=== PATIENT | female | born 1990 | race Caucasian/White ===

== ENCOUNTER 2016-07-09 19:09 | Emergency (ER) | payer SELFPAY ==
--- NOTE | 2016-07-09 19:24 | EDM.PDOC ---
ED HPI GENERAL MEDICAL PROBLEM - General Chief Complaint: Medication Administration Stated Complaint: PRESCRIPTION REFILL Time Seen by Provider: 07/09/16 19:15 Source of Information: Reports: Patient History Limitations: Reports: No limitations - History of Present Illness INITIAL COMMENTS - FREE TEXT/NARRATIVE: HISTORY AND PHYSICAL: History of present illness: [] 26 show female with a history of depression on Effexor daily just moved from out of town and is out of her medication. She is not established relationship with a primary care doctor yet and is concerned that she wants to continue to be compliant with medication. she denies worsening symptoms of depression and is just at her baseline of having well controlled with this medication. She has no inability to function, SI, HI, no overdose or self injury. No recent illness. Patient has no other complaints she is requesting her medication. Her depression is at its baseline of being well-controlled Review of systems: As per history of present illness and below otherwise all systems reviewed and negative. Past medical history: As per history of present illness and as reviewed below otherwise noncontributory. Surgical history: As per history of present illness and as reviewed below otherwise noncontributory. Social history: No reported history of drug or alcohol abuse. Family history: As per history of present illness and as reviewed below otherwise noncontributory. Physical exam: HEENT: Atraumatic, normocephalic, well-appearing, normal mood and affect Lungs: Clear to auscultation, breath sounds equal bilaterally, chest nontender. Heart: S1S2, regular, negative for clicks, rubs, or JVD. Abdomen: nondistended Pelvis: Deferred Genitourinary: Deferred. Rectal: Deferred. Extremities: Atraumatic, normal appearing Neuro: Awake, alert, oriented. Motor unremarkable throughout. Exam nonfocal. Diagnostics: [] Therapeutics: [] Impression: [] Plan: [] Definitive disposition and diagnosis as appropriate pending reevaluation and review of above. - Related Data Allergies Allergy/AdvReac Type Severity Reaction Status Date / Time No Known Allergies Allergy Verified 07/09/16 19:20 Home Meds: Home Meds Venlafaxine HCl [Venlafaxine HCl ER] 300 mg PO DAILY #60 tab.er.24 07/09/16 [Rx] ED ROS GENERAL - Review of Systems Review Of Systems: See Below (See history of present illness) ED EXAM, GENERAL - Physical Exam Exam: See Below (Per history of present illness) Course - Vital Signs Text/Narrative:: Patient prescribe her Effexor XR and [place]. No emergent psychiatric condition exists and patient has no medical complaints. sHe agrees with outpatient followup and strict return precautions regarding depression given Last Recorded V/S: Last Vital Signs Temp 36.2 C 07/09/16 19:14 Pulse 111 H 07/09/16 19:14 Resp 18 07/09/16 19:14 BP 139/75 07/09/16 19:14 Pulse Ox 96 07/09/16 19:14 Departure - Departure Time of Disposition: 19:24 Disposition: Home, Self-Care 01 Clinical Impression: Depression, Medication requested Prescriptions: Venlafaxine HCl [Venlafaxine HCl ER] 300 mg PO DAILY #60 tab.er.24 Instructions: Medicine Refill at the Emergency Department Referrals: PCP,None [Primary Care Provider] - Forms: ED Department Discharge Additional Instructions: Continue your medication as previously prescribed. Return immediately for signs of uncontrolled depression or inability to function and especially for any thoughts of hurting herself.Followup to establish a relationship with her primary care doctor in [facility].
[2016-07-09 19:59] VITALS: BP 136/73
== END 2016-07-09 19:57 | disposition home or self-care (01) ==
LOC: MW.ED 19:09
DX: Z76.0 Encounter for issue of repeat prescription (principal); F32.9 Major depressive disorder, single episode, unspecified; Z79.899 Other long term (current) drug therapy
CPT/HCPCS: 99281; 99283

== ENCOUNTER 2018-01-03 17:08 | Emergency (ER) | payer SELFPAY ==
[2018-01-03] MEDS ORDERED: Ketorolac 60 MG/2 ML SDV IM ONE (17:35)
--- NOTE | 2018-01-03 17:41 | EDM.PDOC ---
ED HPI GENERAL MEDICAL PROBLEM - General Chief Complaint: Upper Extremity Injury/Pain Stated Complaint: RT ARM HAS CARPILTUNNEL FLAIR UP Time Seen by Provider: 01/03/18 17:27 Source of Information: Reports: Patient History Limitations: Reports: No Limitations - History of Present Illness INITIAL COMMENTS - FREE TEXT/NARRATIVE: HISTORY AND PHYSICAL: []28-year-old female presenting with right hand and arm pain History of Present Illness: []Patient has history of carpal tunnel. She does not have any braces here with her Recently started working at [employer] as a [email or web address]. Review of Systems: As per history of present illness and below otherwise all systems reviewed and negative. Past medical history: As per history of present illness and as reviewed below otherwise noncontributory. Surgical history: As per history of present illness and as reviewed below otherwise noncontributory. Social history: No reported history of drug or alcohol abuse. Family history: As per history of present illness and as reviewed below otherwise noncontributory. Physical exam: HEENT: Atraumatic, normocehpalic, pupils reactive, negative for conjunctival pallor or scleral icterus, mucous membranes moist, throat clear, neck supple, nontender, trachea midline. Lungs: Clear to auscultation, breath sounds equal bilaterally, chest non tender. Heart: S1S2, regular, negative for clicks, rubs, or JVD. Abdomen: Soft, nondistended, nontender. Negative for masses or hepatossplenmegaly. Negative for costovertebral tenderness. Pelvis: Stable nontender. Genitourinary: Deferred. Rectal: Deferred Extremities: Atraumatic, negative for cords or calf pain. Neurovascular unremarkable. Neuro: Awake, alert, oriented. Cranial nerves II through XII unremarkable. Cerebellum unremarkable. Motor and sensory unremarkable throughout. Exam nonfocal. Diagnostics: [] Therapeutics: []wrist brace Impression: []Carpal tunnel Plan: []Use the brace while at work and at bedtime Follow-up with Dr. Laura Thomas Return to the emergency department instructed Definitive disposition and diagnosis as appropriate pending reevaluation and review of above. Onset: Gradual Duration: Chronic, Getting Worse Location: Reports: Upper Extremity, Right right hand Pain Score (Numeric/FACES): 8 - Related Data Allergies Allergy/AdvReac Type Severity Reaction Status Date / Time No Known Allergies Allergy Verified 01/03/18 17:24 Home Meds: Home Meds Diclofenac Sodium [Voltaren] 75 mg PO BIDMEALS #12 tab.cr 01/03/18 [Rx] Past Medical History HEENT History: Reports: None Musculoskeletal History: Reports: Other (See Below) Other Musculoskeletal History: Carpal tunnel Psychiatric History: Reports: Anxiety, Depression - Infectious Disease History Infectious Disease History: Reports: Chicken Pox - Past Surgical History HEENT Surgical History: Reports: Oral Surgery, Tonsillectomy Musculoskeletal Surgical History: Reports: None Social & Family History - Family History Family Medical History: Noncontributory - Tobacco Use Smoking Status *Q: Current Every Day Smoker Years of Tobacco use: 10 Packs/Tins Daily: 0.4 - Caffeine Use Caffeine Use: Reports: Coffee - Recreational Drug Use Recreational Drug Use: No Review of Systems - Review of Systems Review Of Systems: ROS reveals no pertinent complaints other than HPI. ED EXAM, GENERAL - Physical Exam Exam: See Below (see dictation) Course - Vital Signs Last Recorded V/S: Last Vital Signs Temp 36.4 C 01/03/18 17:21 Pulse 82 01/03/18 17:21 Resp 17 01/03/18 17:21 BP 124/73 01/03/18 17:21 Pulse Ox 99 01/03/18 17:21 - Orders/Labs/Meds Orders: Active Orders 24 hr Category Date Time Status Splinting [RC] ASDIRECTED Care 01/03/18 17:34 Active Ketorolac [Toradol] Med 01/03/18 17:35 Once 60 mg IM ONETIME ONE Departure - Departure Time of Disposition: 17:39 Disposition: Home, Self-Care 01 Condition: Good Clinical Impression: Carpal tunnel syndrome of right wrist - Discharge Information *PRESCRIPTION DRUG MONITORING PROGRAM REVIEWED*: Not Applicable *COPY OF PRESCRIPTION DRUG MONITORING REPORT IN PATIENT MAMIE: Not Applicable Prescriptions: Diclofenac Sodium [Voltaren] 75 mg PO BIDMEALS #12 tab.cr Instructions: Carpal Tunnel Syndrome, [id number], Hand Exercises Referrals: PCP,None [Primary Care Provider] - Additional Instructions: The following information is given to patients seen in the emergency department who are being discharged to home. This information is to outline your options for follow-up care. We provide all patients seen in our emergency department with a follow-up referral. The need for follow-up, as well as the timing and circumstances, are variable depending upon the specifics of your emergency department visit. If you don't have a primary care physician on staff, we will provide you with a referral. We always advise you to contact your personal physician following an emergency department visit to inform them of the circumstance of the visit and for follow-up with them and/or the need for any referrals to a consulting specialist. The emergency department will also refer you to a specialist when appropriate. This referral assures that you have the opportunity for followup care with a specialist. All of these measure are taken in an effort to provide you with optimal care, which includes your followup. Under all circumstances we always encourage you to contact your private physician who remains a resource for coordinating your care. When calling for followup care, please make the office aware that this follow-up is from your recent emergency room visit. If for any reason you are refused follow-up, please contact the [facility] emergency department at and asked to speak to the emergency department charge nurse. Use the brace while at work and at bedtime Follow-up with Dr. Laura Thomas Return to the emergency department instructed - My Orders Last 24 Hours: My Active Orders 01/03/18 17:34 Splinting [RC] ASDIRECTED 01/03/18 17:35 Ketorolac [Toradol] 60 mg IM ONETIME ONE - Assessment/Plan Last 24 Hours: My Active Orders 01/03/18 17:34 Splinting [RC] ASDIRECTED 01/03/18 17:35 Ketorolac [Toradol] 60 mg IM ONETIME ONE
[2018-01-03 18:06] VITALS: BP 124/77
== END 2018-01-03 18:02 | disposition home or self-care (01) ==
LOC: MW.ED 17:08
DX: G56.01 Carpal tunnel syndrome, right upper limb (principal); F17.210 Nicotine dependence, cigarettes, uncomplicated
CPT/HCPCS: 96372; 99283; J1885

== ENCOUNTER 2018-01-19 11:56 | Emergency (ER) | payer MEDICAID ==
--- NOTE | 2018-01-19 12:08 | EDM.PDOC ---
ED HPI GENERAL MEDICAL PROBLEM - General Chief Complaint: Neuro Symptoms/Deficits Stated Complaint: NUMB LEFT SIDE Time Seen by Provider: 01/19/18 12:08 Source of Information: Reports: Patient - History of Present Illness INITIAL COMMENTS - FREE TEXT/NARRATIVE: HISTORY AND PHYSICAL: History of present illness: [Patient presents with facial weakness on the left, forehead is involved left eye weakness with closing as well as drooping of the angle of the mouth, she has had sinus symptoms over the last 2 weeks as well as tongue numbness developing 2 weeks prior to days ago the facial weakness became pronounced. She is now very worried about stroke, she has been doing some reading she now states that her left arm as somewhat heavier feeling than the right however. Strength is noted she does have a history of carpal tunnel syndrome and has some decreased sensation in the median nerve distribution but not loss of sensation, this has been ongoing for quite some time Stroke score is 2 mostly based on the decreased sensation compared to the right All other symptoms such as fever nausea vomiting diarrhea constipation chest pain shortness breath headache dizziness palpitation no bowel or urine symptoms ] Review of systems: As per history of present illness and below otherwise all systems reviewed and negative. Past medical history: As per history of present illness and as reviewed below otherwise noncontributory. Surgical history: As per history of present illness and as reviewed below otherwise noncontributory. Social history: No reported history of drug or alcohol abuse. Family history: As per history of present illness and as reviewed below otherwise noncontributory. Physical exam: HEENT: Atraumatic, normocephalic, pupils reactive, negative for conjunctival pallor or scleral icterus, mucous membranes moist, throat clear, neck supple, nontender, trachea midline. Tenderness right greater than left Lungs: Clear to auscultation, breath sounds equal bilaterally, chest nontender. Patient is able to close her left eye but week on opening compared to the right Heart: S1S2, regular, negative for clicks, rubs, or JVD. Abdomen: Soft, nondistended, nontender. Negative for masses or hepatosplenomegaly. Negative for costovertebral tenderness. Pelvis: Stable nontender. Genitourinary: Deferred. Rectal: Deferred. Extremities: Atraumatic, negative for cords or calf pain. Neurovascular unremarkable. Neuro: Awake, alert, oriented. Cranial nerves II through XII unremarkable in the right. Cerebellum unremarkable. Motor and sensory unremarkable throughout. Exam nonfocal. Cranial nerve VII lesion on the left is noted Diagnostics: [Lab as below Head CT Chest 1 view EKG ] Therapeutics: [ antral dose pack Z-Brennan ] Impression: [ Irvona palsy ] Carpal tunnel syndrome Definitive disposition and diagnosis as appropriate pending reevaluation and review of above. - Related Data Allergies Allergy/AdvReac Type Severity Reaction Status Date / Time No Known Allergies Allergy Verified 01/19/18 13:06 Home Meds: Home Meds Kratom 10 - 15 gram PO DAILY 01/19/18 [History] Past Medical History HEENT History: Reports: None Musculoskeletal History: Reports: Other (See Below) Other Musculoskeletal History: Carpal tunnel Psychiatric History: Reports: Anxiety, Depression - Infectious Disease History Infectious Disease History: Reports: Chicken Pox - Past Surgical History HEENT Surgical History: Reports: Oral Surgery, Tonsillectomy Musculoskeletal Surgical History: Reports: None Social & Family History - Family History Family Medical History: Noncontributory - Caffeine Use Caffeine Use: Reports: Coffee ED ROS GENERAL - Review of Systems Review Of Systems: See Below ED EXAM, GENERAL - Physical Exam Exam: See Below Course - Vital Signs Last Recorded V/S: Last Vital Signs Temp 97.4 F 01/19/18 13:10 Pulse 85 01/19/18 13:10 Resp 16 01/19/18 13:10 BP 115/73 01/19/18 13:10 Pulse Ox 96 01/19/18 13:10 - Orders/Labs/Meds Orders: Active Orders 24 hr Category Date Time Status EKG Documentation Completion [RC] STAT Care 01/19/18 12:03 Active Chest 1V Frontal [CR] Stat Exams 01/19/18 12:03 Taken Head wo Cont [CT] Stat Exams 01/19/18 12:03 Taken HCG QUALITATIVE,URINE [URCHEM] Stat Lab 01/19/18 12:04 Ordered UA W/MICROSCOPIC [URIN] Stat Lab 01/19/18 12:03 Ordered Labs: Laboratory Tests 01/19/18 01/19/18 01/19/18 Range/Units 12:40 12:40 12:58 WBC 12.43 H (4.0-11.0) K/uL RBC 4.82 (4.30-5.90) M/uL Hgb 13.8 (12.0-16.0) g/dL Hct 42.2 (36.0-46.0) % MCV 87.6 (80.0-98.0) fL MCH 28.6 (27.0-32.0) pg MCHC 32.7 (31.0-37.0) g/dL RDW Std Deviation 42.9 (28.0-62.0) fl RDW Coeff of Lamont 13 (11.0-15.0) % Plt Count 375 (150-400) K/uL MPV 10.50 (7.40-12.00) fL Neut % (Auto) 57.0 (48.0-80.0) % Lymph % (Auto) 36.4 (16.0-40.0) % Crowley % (Auto) 5.1 (0.0-15.0) % Eos % (Auto) 1.0 (0.0-7.0) % Baso % (Auto) 0.5 (0.0-1.5) % Neut # (Auto) 7.1 H (1.4-5.7) K/uL Lymph # (Auto) 4.5 H (0.6-2.4) K/uL Crowley # (Auto) 0.6 (0.0-0.8) K/uL Eos # (Auto) 0.1 (0.0-0.7) K/uL Baso # (Auto) 0.1 (0.0-0.1) K/uL Nucleated RBC % 0.0 /100WBC Nucleated RBCs # 0 K/uL INR 0.99 Sodium 139 (136-145) mmol/L Potassium 5.1 (3.5-5.1) mmol/L Chloride 104 (98-107) mmol/L Carbon Dioxide 26.2 (21.0-32.0) mmol/L BUN 15 (7.0-18.0) mg/dL Creatinine 0.7 (0.6-1.0) mg/dL Est Cr Clr Drug Dosing 94.63 mL/min Estimated GFR (MDRD) > 60.0 ml/min Glucose 79 (74-106) mg/dL Calcium 8.4 L (8.5-10.1) mg/dL Total Bilirubin 0.5 (0.2-1.0) mg/dL AST 35 (15-37) IU/L ALT 25 (14-63) IU/L Alkaline Phosphatase 91 (46-116) U/L Troponin I < 0.050 (0.000-0.056) ng/mL Total Protein 7.2 (6.4-8.2) g/dL Albumin 3.9 (3.4-5.0) g/dL Globulin 3.3 (2.0-3.5) g/dL Albumin/Globulin Ratio 1.2 L (1.3-2.8) TSH 3rd Generation 1.74 (0.36-3.74) uIU/mL Departure - Departure Time of Disposition: 14:31 Disposition: Home, Self-Care 01 Condition: Good Clinical Impression: Bennett's palsy, Carpal tunnel syndrome, Sinusitis - Discharge Information Forms: ED Department Discharge Additional Instructions: Medication as prescribed Return if symptoms persist or worsen Follow-up with primary care in 2 weeks sooner as needed [facility] - Primary Care [address] [place] [address] The following information is given to patients seen in the emergency department who are being discharged to home. This information is to outline your options for follow-up care. We provide all patients seen in our emergency department with a follow-up referral. The need for follow-up, as well as the timing and circumstances, are variable depending upon the specifics of your emergency department visit. If you don't have a primary care physician on staff, we will provide you with a referral. We always advise you to contact your personal physician following an emergency department visit to inform them of the circumstance of the visit and for follow-up with them and/or the need for any referrals to a consulting specialist. The emergency department will also refer you to a specialist when appropriate. This referral assures that you have the opportunity for follow-up care with a specialist. All of these measure are taken in an effort to provide you with optimal care, which includes your follow-up. Under all circumstances we always encourage you to contact your private physician who remains a resource for coordinating your care. When calling for follow-up care, please make the office aware that this follow-up is from your recent emergency room visit. If for any reason you are refused follow-up, please contact the [facility] emergency department at and asked to speak to the emergency department charge nurse. - My Orders Last 24 Hours: My Active Orders 01/19/18 12:03 EKG Documentation Completion [RC] STAT Chest 1V Frontal [CR] Stat Head wo Cont [CT] Stat UA W/MICROSCOPIC [URIN] Stat 01/19/18 12:04 HCG QUALITATIVE,URINE [URCHEM] Stat - Assessment/Plan Last 24 Hours: My Active Orders 01/19/18 12:03 EKG Documentation Completion [RC] STAT Chest 1V Frontal [CR] Stat Head wo Cont [CT] Stat UA W/MICROSCOPIC [URIN] Stat 01/19/18 12:04 HCG QUALITATIVE,URINE [URCHEM] Stat
[2018-01-19 13:41] LABS: CHLORIDE,CL 104 mmol/L (98-107); SODIUM,NA 139 mmol/L (136-145)
[2018-01-19 14:48] VITALS: BP 111/72
--- NOTE | 2018-01-22 10:00 | CR ---
EXAM DATE: 01/19/18 PATIENT'S AGE: 28 Patient: SURENDRA GOMEZ Facility: [place], [place] Site . Site : 1990 Study: XRay Chest [id number] 12:14:55 PM Ordering Physician: Doctor Ortez Final Report: INDICATION: Weakness left TECHNIQUE: Chest radiograph 1 view COMPARISON: None FINDINGS: Mediastinum: The mediastinum is normal in appearance. The heart silhouette is normal in size and morphology. Lung: Both lungs are unremarkable in appearance. There is a 5 mm density overlying the right apex. No sign of pleural effusion seen. No pneumothorax is identified. Musculoskeletal: Unremarkable for age. IMPRESSION: 1. There is a 5 mm density overlying the right apex. Comparison with any prior outside imaging is recommended. If these cannot be obtained, follow up chest radiograph is warranted to document stability and exclude a foreign body. Dictated by Enoch Frey MD @ 01/19/2018 1:02:12 PM Dictated by: Enoch Frey MD @ 01/19/2018 13:03:20 (Electronic Signature) Report Signed by Proxy. ISADORA
--- NOTE | 2018-01-22 10:00 | CT ---
EXAM DATE: 01/19/18 PATIENT'S AGE: 28 Patient: SURENDRA GOMEZ Facility: [place], [place] Site . Site : 1990 Study: CT Head STROKE PROTOCOL [id number]/[id number] 12:10:55 PM Ordering Physician: Doctor Ortez Final Report: INDICATION: Left-sided weakness COMPARISON: none TECHNIQUE: A CT volumetric acquisition was performed of the brain without IV contrast. FINDINGS: There is no evidence of a subdural or epidural hematoma. There is no evidence of subarachnoid hemorrhage or intraparenchymal bleeding. The CT images reveal a normal appearance of the cerebral ventricles and basal cisterns. There is no evidence of localized tissue infarction or mass effect. There is normal grider white matter differentiation. The mastoid air cells and middle ear cavities are clear. The calvarium appears intact. There is inflammatory mucoperiosteal thickening within the visualized ethmoid and sphenoid sinuses. The frontal air cells appear clear. IMPRESSION: No evidence of intracranial hemorrhage, infarct or mass effect. Paranasal sinusitis. Please note that all CT scans at this facility use dose modulation, iterative reconstruction, and/or weight-based dosing when appropriate to reduce radiation dose to as low as reasonably achievable. Dictated by Last Bianchi MD @ Jan 19 2018 12:13PM (Electronic Signature) Report Signed by Proxy. ISADORA
== END 2018-01-19 14:47 | disposition home or self-care (01) ==
LOC: MW.ED 11:56
DX: G51.0 Bell's palsy (principal); G56.02 Carpal tunnel syndrome, left upper limb; J32.9 Chronic sinusitis, unspecified
CPT/HCPCS: 36415; 70450; 70450-26; 71045; 71045-26; 80053; 84443; 84484; 85025; 85610; 93005; 99285-25

== ENCOUNTER 2019-05-25 19:10 | Emergency (ER) | payer MEDICAID ==
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
[2019-05-25] MEDS ORDERED: Acetaminophen/HYDROcodone 325-10 MG Tab PO ONE (20:23)
[2019-05-25] MEDS ORDERED: Ketorolac 60 MG/2 ML SDV IM ONE (20:29)
[2019-05-25] MEDS ORDERED: Ketorolac 60 MG/2 ML SDV ONE (20:30)
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
[2019-05-25 21:05] VITALS: BP 100/66; PULSE 74
== END 2019-05-25 21:37 | disposition home or self-care (01) ==
LOC: MW.ED 19:10
DX: S00.12XA Contusion of left eyelid and periocular area, initial encounter (principal); S00.33XA Contusion of nose, initial encounter; S30.0XXA Contusion of lower back and pelvis, initial encounter; S30.811A Abrasion of abdominal wall, initial encounter; S40.212A Abrasion of left shoulder, initial encounter; S40.812A Abrasion of left upper arm, initial encounter; F17.210 Nicotine dependence, cigarettes, uncomplicated; Y04.2XXA Assault by strike against or bumped into by another person, initial encounter
CPT/HCPCS: 70450; 70486; 81025; 96372; 99284; J1885

== ENCOUNTER 2019-07-24 21:59 | Emergency (ER) | payer MEDICAID, OTHER ==
[2019-07-24] MEDS ORDERED: Levofloxacin/Dextrose 5%-Water 500 MG in Premix Bag 1 BAG IV ONE (22:34)
[2019-07-24] MEDS ORDERED: Levofloxacin/Dextrose 5%-Water 100 ML IV ONE (22:53)
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
[2019-07-24] MEDS ORDERED: Doxycycline 200 MG in Dextrose 5% in Water 250 ML IV STA ×2 (23:28)
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
[2019-07-24 23:41] LABS: BLOOD UREA NITROGEN,BUN 8 mg/dL (7.0-18.0); CARBON DIOXIDE,CO2 26.6 mmol/L (21.0-32.0); CHLORIDE,CL 101 mmol/L (98-107); GLUCOSE RANDOM 86 mg/dL (74-106); POTASSIUM,K 3.9 mmol/L (3.5-5.1); SODIUM,NA 138 mmol/L (136-145)
[2019-07-24 23:54] VITALS: PULSE 116
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
[2019-07-25 00:57] VITALS: BP 119/69
== END 2019-07-25 00:45 | disposition left against medical advice (07) ==
LOC: MW.ED 21:59
DX: L02.11 Cutaneous abscess of neck (principal); L03.221 Cellulitis of neck; F17.210 Nicotine dependence, cigarettes, uncomplicated
CPT/HCPCS: 36415; 71045; 76536; 80053; 83605; 84484; 85025; 85610; 87040; 96365; 96367; 99284; J1956; J3370; J7050; 99285

== ENCOUNTER 2019-07-27 17:31 | Emergency (ER) | payer OTHER ==
[2019-07-27 17:59] VITALS: BP 108/41; PULSE 80
--- NOTE | 2019-07-27 18:30 | EDM.PDOC ---
ED HPI GENERAL MEDICAL PROBLEM - General Chief Complaint: Skin Complaint Stated Complaint: NEEDS ASSISTANCE REPACKING WOUND Time Seen by Provider: 07/27/19 18:11 Source of Information: Reports: Patient History Limitations: Reports: No Limitations - History of Present Illness INITIAL COMMENTS - FREE TEXT/NARRATIVE: HISTORY AND PHYSICAL: History of present illness: Patient is a 29-year-old female who presents to the ED today with concern of getting help with changing a wound dressing. Patient states that 24 hours ago she had an abscess on the right side of her neck incision and drained in the operating room by a surgeon in [place]. Patient states that she was instructed to change the packing every 24 hours and was provided with packing material (1/2 in iodoform) that she has with her. Patient states that she feels too queasy and feels like she cannot change this dressing herself so came to the ED to have this changed for her. Patient denies any other symptoms or concerns. Patient denies fever, chills, chest pain, shortness of breath, or cough. Denies headache, neck stiff ness, change in vision, syncope, or near syncope. Denies nausea, vomiting, abdominal pain, diarrhea, constipation, or dysuria. Has not noted any blood in urine or stool. Patient has been eating and drinking appropriately. Review of systems: As per history of present illness and below otherwise all systems reviewed and negative. Past medical history: As per history of present illness and as reviewed below otherwise noncontributory. Surgical history: As per history of present illness and as reviewed below otherwise noncontributory. Social history: See social history for further information Family history: As per history of present illness and as reviewed below otherwise noncontributory. Physical exam: General: Patient is alert, oriented, and in no acute distress. Patient sitting comfortably on exam table. HEENT: There is a 4cm surgical open laceration of the right side of the neck with packing with iodoform without drainage and appears to be healing appropriately. Otherwise, Atraumatic, normocephalic, pupils equal and reactive bilaterally, negative for conjunctival pallor or scleral icterus, mucous membranes moist, TMs normal bilaterally, throat clear, neck supple, nontender, trachea midline. No drooling or trismus noted. No meningeal signs. No hot potato voice noted. Lungs: Clear to auscultation, breath sounds equal bilaterally, chest nontender. Heart: S1S2, regular rate and rhythm without overt murmur Abdomen: Soft, nondistended, nontender. Negative for masses or hepatosplenomegaly. Negative for costovertebral tenderness. Pelvis: Stable nontender. Genitourinary: Deferred. Rectal: Deferred. Skin: Intact, warm, dry. No lesions or rashes noted. Extremities: Atraumatic, negative for cords or calf pain. Neurovascular unremarkable. Neuro: Awake, alert, oriented. Cranial nerves II through XII unremarkable. Cerebellum unremarkable. Motor and sensory unremarkable throughout. Exam nonfocal. Notes: 1/2 in iodoform was easily removed from 4cm incision of the right side of neck. Wound explored without signs of worsening infection and tissue appears to be healing well without drainage or warmth of the area. 1/2 in iodoform was used to repack the wound. Patient tolerated procedure well. Discussed importance for follow-up with her surgeon as well as her primary care provider. Voices understanding and is agreeable to plan of care. Denies any further questions or concerns at this time. Diagnostics: None Therapeutics: None Prescription: None Impression: Encounter for surgical wound dressing change Plan: 1. You can alternate ibuprofen and Tylenol as directed for pain and discomfort. 2. Continue wound dressing changes as directed by your surgeon who performed the surgery. 3. Follow-up with your primary care provider as discussed. Return to the ED as needed and as discussed. Definitive disposition and diagnosis as appropriate pending reevaluation and review of above. Right Neck Pain Score (Numeric/FACES): 7 - Related Data Allergies Allergy/AdvReac Type Severity Reaction Status Date / Time No Known Allergies Allergy Verified 07/27/19 17:59 Home Meds: Home Meds Venlafaxine [Effexor] 150 mg PO DAILY 07/27/19 [History] Past Medical History HEENT History: Reports: None Cardiovascular History: Reports: None Respiratory History: Reports: None Gastrointestinal History: Reports: None Genitourinary History: Reports: None MALTER OPERATOR History: Reports: None Musculoskeletal History: Reports: Other (See Below) Other Musculoskeletal History: Carpal tunnel Neurological History: Reports: None Psychiatric History: Reports: Anxiety, Depression Endocrine/Metabolic History: Reports: None Insulin Pump Model and Applications Project Manager: None Hematologic History: Reports: None Immunologic History: Reports: None Oncologic (Cancer) History: Reports: None Dermatologic History: Reports: None - Infectious Disease History Infectious Disease History: Reports: Chicken Pox, MRSA Other Infectious Disease History: Staph - Past Surgical History Head Surgeries/Procedures: Reports: None HEENT Surgical History: Reports: Oral Surgery, Tonsillectomy Musculoskeletal Surgical History: Reports: None Social & Family History - Family History Family Medical History: Noncontributory Cardiac: Reports: CAD Oncologic: Reports: Other (See Below) Other Oncologic Family History: CA - Tobacco Use Smoking Status *Q: Current Every Day Smoker Years of Tobacco use: 5 Packs/Tins Daily: 0.5 - Caffeine Use Caffeine Use: Reports: None - Recreational Drug Use Recreational Drug Use: No Recreational Drug Type: Reports: Marijuana/Hashish ED ROS GENERAL - Review of Systems Review Of Systems: Comprehensive ROS is negative, except as noted in HPI. ED EXAM, SKIN/RASH Exam: See Below (see dictation) Course - Vital Signs Last Recorded V/S: Last Vital Signs Temp 96.6 F L 07/27/19 17:55 Pulse 80 07/27/19 17:55 Resp 16 07/27/19 17:55 BP 108/41 L 07/27/19 17:55 Pulse Ox 98 07/27/19 17:55 Departure - Departure Time of Disposition: 18:30 Disposition: Home, Self-Care 01 Clinical Impression: Encounter for surgical wound dressing change - Discharge Information Referrals: Leonardo Velázquez MD [Primary Care Provider] - Additional Instructions: The following information is given to patients seen in the emergency department who are being discharged to home. This information is to outline your options for follow-up care. We provide all patients seen in our emergency department with a follow-up referral. The need for follow-up, as well as the timing and circumstances, are variable depending upon the specifics of your emergency department visit. If you don't have a primary care physician on staff, we will provide you with a referral. We always advise you to contact your personal physician following an emergency department visit to inform them of the circumstance of the visit and for follow-up with them and/or the need for any referrals to a consulting specialist. The emergency department will also refer you to a specialist when appropriate. This referral assures that you have the opportunity for follow-up care with a specialist. All of these measure are taken in an effort to provide you with optimal care, which includes your follow-up. Under all circumstances we always encourage you to contact your private physician who remains a resource for coordinating your care. When calling for follow-up care, please make the office aware that this follow-up is from your recent emergency room visit. If for any reason you are refused follow-up, please contact the Emergency Department at and asked to speak to the emergency department charge nurse. Primary Care [address] [place] [phone] [address] 1. You can alternate ibuprofen and Tylenol as directed for pain and discomfort. 2. Continue wound dressing changes as directed by your surgeon who performed the surgery. 3. Follow-up with your primary care provider as discussed. Return to the ED as needed and as discussed. Sepsis Event Note - Evaluation Sepsis Screening Result: No Definite Risk - Focused Exam Vital Signs: Vital Signs Temp Pulse Resp BP Pulse Ox 07/27/19 17:55 96.6 F L 80 16 108/41 L 98 Date Exam was Performed: 07/27/19 Time Exam was Performed: 18:24
== END 2019-07-27 18:40 | disposition home or self-care (01) ==
LOC: MW.ED 17:31
DX: Z48.01 Encounter for change or removal of surgical wound dressing (principal); F41.9 Anxiety disorder, unspecified; F32.9 Major depressive disorder, single episode, unspecified; F17.210 Nicotine dependence, cigarettes, uncomplicated; Z79.899 Other long term (current) drug therapy
CPT/HCPCS: 99282

== ENCOUNTER 2019-09-19 07:36 | Emergency (ER) | payer OTHER ==
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
[2019-09-19] MEDS ORDERED: Ondansetron 4 MG/2 ML SDV IVPUSH ONE (08:06)
[2019-09-19] MEDS ORDERED: Sodium Chloride 0.9% 2.5 ML Syringe FLUSH PRN (08:06)
[2019-09-19] MEDS ORDERED: fentaNYL 50 MCG/ML SDV IVPUSH ONE (08:07)
--- NOTE | 2019-09-19 09:29 | CT ---
Head CT Technique: Multiple axial sections through the brain were obtained. Intravenous contrast was not utilized. Comparison: Prior head CT study of 05/25/19. Findings: Ventricles along with basal cisterns and sulci over the convexities are within normal limits for the patient's age. No abnormal parenchymal densities are seen. No evidence of intracranial hemorrhage. No midline shift or mass effect is seen. Soft tissue swelling is noted within the right periorbital region as well as within the frontal scalp. Bone window settings were reviewed. No acute calvarial abnormality is appreciated. Nasal bone fracture is present. Impression: 1. Nasal bone fracture. Soft tissue swelling as described above. 2. No acute intracranial abnormality is identified. No acute calvarial finding is seen. Diagnostic code #3 This report was dictated in MDT
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
--- NOTE | 2019-09-19 10:42 | CT ---
CT cervical spine Technique: Multiple axial sections through the cervical spine were obtained from above the C1 inferiorly to the top of T2. Reconstructed sagittal and coronal images were obtained. Comparison: No prior cervical spine imaging is available. Findings: Mild disc space narrowing is noted at C5-C6 with anterior osteophytes and mild posterior osteophytes. Minimal disc space narrowing is noted at C4-C5. Other disc spaces are maintained. Vertebral body heights are maintained. Minimal degenerative apophyseal change is scattered within the apophyseal joints. Vertebral bodies and posterior arches are intact. No bony central or bony neural foraminal stenosis is seen. No abnormal subluxation is seen. Cervical spine shows mild kyphosis which is most likely positional. Minimal scoliosis is noted. No bony central or bony neural foraminal stenosis is seen. Impression: 1. Minimal degenerative change. 2. Nothing acute is appreciated on CT study of the cervical spine. Diagnostic code #2 This report was dictated in MDT
[2019-09-19 11:59] VITALS: BP 118/76; PULSE 108
== END 2019-09-19 11:40 | disposition home or self-care (01) ==
LOC: MW.ED 07:36
DX: S02.2XXA Fracture of nasal bones, initial encounter for closed fracture (principal); S00.83XA Contusion of other part of head, initial encounter; Z79.899 Other long term (current) drug therapy; Y00.XXXA Assault by blunt object, initial encounter; Y92.009 Unspecified place in unspecified non-institutional (private) residence as the place of occurrence of the external cause
CPT/HCPCS: 70450; 70486; 72125; 96374; 96375; 99284; J2405; J3010; 99283

== ENCOUNTER 2019-12-09 15:06 | Emergency (ER) | payer MEDICAID ==
--- NOTE | 2019-12-09 15:23 | EDM.PDOC ---
ED HPI GENERAL MEDICAL PROBLEM - General Chief Complaint: Skin Complaint Stated Complaint: STAPH INFECTION Time Seen by Provider: 12/09/19 15:08 Source of Information: Reports: Patient History Limitations: Reports: No Limitations - History of Present Illness INITIAL COMMENTS - FREE TEXT/NARRATIVE: HISTORY AND PHYSICAL: History of present illness: Patient is a 29-year-old female who presents to the emergency room with complaints of an abscess and cellulitis of her left hand. 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 Approximately 1 week ago she injected methamphetamine into her left hand, shortly after she started to develop an abscess. She states she did wilda this herself and did get some drainage from the area. She states over the past few days she has noticed some surrounding redness to the surrounding skin. She did have some leftover amoxicillin and clindamycin that she took, a couple tabs of each. Unsure of the dosing of these. She states she cannot receive vancomycin as her body is "resistant to it". Patient denies any fever, chills, headache, change in vision, syncope or near syncope. Denies any chest pain, back pain, shortness of breath or cough. Denies any abdominal pain, nausea, vomiting, diarrhea, constipation or dysuria. Patient has been eating and drinking appropriately. Review of systems: As per history of present illness and below otherwise all systems reviewed and negative. Past medical history: As per history of present illness and as reviewed below otherwise noncontributory. Surgical history: As per history of present illness and as reviewed below otherwise noncontributory. Social history: See social history for further information Family history: As per history of present illness and as reviewed below otherwise noncontributory. Physical exam: General: Well-developed and well-nourished 29-year-old female. Alert and oriented. Nontoxic-appearing and in no acute distress. Vital signs are stable and have been reviewed by me. HEENT: Atraumatic, normocephalic, pupils equal and reactive bilaterally, negative for conjunctival pallor or scleral icterus, mucous membranes moist, TMs normal bilaterally, throat clear, neck supple, nontender, trachea midline. No drooling or trismus noted. No meningeal signs. No hot potato voice noted. Lungs: Clear to auscultation, breath sounds equal bilaterally, chest nontender. Heart: S1S2, regular rate and rhythm without overt murmur Abdomen: Soft, nondistended, nontender. Skin: She does have a quarter size abscess at the base of the left thumb with surrounding erythema that goes across the dorsal aspect of the hand, this is not circumferential. She has good sensation to the distal tips of all 5 fingers. Intact, warm, dry. No lesions or rashes noted. Hematologic: No petechiae or purpra. Mucosa appropriate color and normal nail bed color and refill. Extremities: Atraumatic, moves all extremities per self without difficulty or deficits, good cap refill, strong radial pulse. See skin for details. Neurovascular unremarkable. Neuro: Awake, alert, oriented. Cranial nerves II through XII unremarkable. Cerebellum unremarkable. Motor and sensory unremarkable throughout. Exam nonfocal. Notes: Verbal consent was obtained from patient. Area was cleansed with Betadine and 1% lidocaine was used to anesthetize the abscess injection area. 11 blade was used to puncture the site and a moderate amount of purulent thick drainage was expressed from the abscess. Inoculations were broken up. Please see note for details. Baseline lab work was obtained. These are unremarkable. I do not consider her failed outpatient therapy as she had a few tablets of amoxicillin and then a few of the clindamycin, unsure of dosing. Was not consistent with taking these. Her physical exam shows she is appropriate for attempt of outpatient oral antibiotics. We discussed in great length signs and symptoms that would prompt her to return to the emergency room as she may require IV antibiotic and/or admission if this does not improve. Supportive care measures were reviewed and discussed. Voices understanding and is agreeable to plan of care. Denies any further questions or concerns at this time. Diagnostics: CBC, CMP, hand x-ray Therapeutics: I&D, Bactrim DS Prescription: Bactrim DS Impression: Abscess with cellulitis Plan: 1. Continue to monitor the site for improvement. If the redness should worsen outside of the marked area, you may need to be admitted for IV antibiotics as we discussed. Bactrim DS twice daily over the next 10 days. If your symptoms should worsen, new symptoms develop or any of the signs and symptoms we discussed should arise please return to the emergency room or call 911 (if needed). 2. You can alternate Tylenol and ibuprofen for pain. Definitive disposition and diagnosis as appropriate pending reevaluation and review of above. left hand Pain Score (Numeric/FACES): 4 - Related Data Allergies Allergy/AdvReac Type Severity Reaction Status Date / Time No Known Allergies Allergy Verified 12/09/19 15:27 Home Meds: Home Meds Cyclobenzaprine [Flexeril] 10 mg PO TID #30 tab 09/19/19 [Rx] Buprenorphine HCl/Naloxone HCl [Suboxone 12 mg-3 mg Sl Film] 1 each PO DAILY 12/09/19 [History] busPIRone [Buspar] 10 mg PO BID 12/09/19 [History] Past Medical History HEENT History: Reports: None Cardiovascular History: Reports: None Respiratory History: Reports: None Gastrointestinal History: Reports: None Genitourinary History: Reports: None [employer] History: Reports: None Musculoskeletal History: Reports: Other (See Below) Other Musculoskeletal History: Carpal tunnel Neurological History: Reports: None Psychiatric History: Reports: Anxiety, Depression Endocrine/Metabolic History: Reports: None Insulin Pump Model and Brim Stiffener: None Hematologic History: Reports: None Immunologic History: Reports: None Oncologic (Cancer) History: Reports: None Dermatologic History: Reports: None - Infectious Disease History Infectious Disease History: Reports: Chicken Pox, MRSA Other Infectious Disease History: Staph - Past Surgical History Head Surgeries/Procedures: Reports: None HEENT Surgical History: Reports: Oral Surgery, Tonsillectomy Musculoskeletal Surgical History: Reports: None Social & Family History - Family History Family Medical History: Noncontributory Cardiac: Reports: CAD Oncologic: Reports: Other (See Below) Other Oncologic Family History: CA - Caffeine Use Caffeine Use: Reports: None ED ROS GENERAL - Review of Systems Review Of Systems: Comprehensive ROS is negative, except as noted in HPI. ED EXAM, SKIN/RASH Exam: See Below (See dictation) ED SKIN PROCEDURES - I&D Site: Left thumb Skin Prep: Chlorhexidine (Hibiciens), Providone-Iodine (Betadine), Sterile Drape Local Anesthesia: Lidocaine: 1% Plain Local Anesthetic Volume: 2cc Area Incised With: 11 Blade Drainage: Purulent, Moderate Amount Probed to Break Up Loculations: Yes Packed With: None (Did not tolerate; requested it not to be packed. Aware of implications.) Sterile Dressinx4(s) (Nonstick) Complications: No Course - Vital Signs Last Recorded V/S: Last Vital Signs Temp 96.5 F L 12/09/19 15:29 Pulse 92 12/09/19 15:29 Resp 20 12/09/19 15:29 BP 111/74 12/09/19 15:29 Pulse Ox 97 12/09/19 15:29 - Orders/Labs/Meds Orders: Active Orders 24 hr Category Date Time Status Hand Comp Min 3V Lt [CR] Stat Exams 12/09/19 15:28 Taken Labs: Laboratory Tests 12/09/19 12/09/19 Range/Units 15:40 15:40 WBC 9.90 (4.0-11.0) K/uL RBC 4.68 (4.30-5.90) M/uL Hgb 12.6 (12.0-16.0) g/dL Hct 40.4 (36.0-46.0) % MCV 86.3 (80.0-98.0) fL MCH 26.9 L (27.0-32.0) pg MCHC 31.2 (31.0-37.0) g/dL RDW Std Deviation 40.7 (28.0-62.0) fl RDW Coeff of Lamont 13 (11.0-15.0) % Plt Count 312 (150-400) K/uL MPV 10.70 (7.40-12.00) fL Neut % (Auto) 67.2 (48.0-80.0) % Lymph % (Auto) 18.2 (16.0-40.0) % [place] % (Auto) 12.4 (0.0-15.0) % Eos % (Auto) 1.8 (0.0-7.0) % Baso % (Auto) 0.4 (0.0-1.5) % Neut # (Auto) 6.7 H (1.4-5.7) K/uL Lymph # (Auto) 1.8 (0.6-2.4) K/uL [place] # (Auto) 1.2 H (0.0-0.8) K/uL Eos # (Auto) 0.2 (0.0-0.7) K/uL Baso # (Auto) 0.0 (0.0-0.1) K/uL Nucleated RBC % 0.0 /100WBC Nucleated RBCs # 0 K/uL Sodium 143 (136-145) mmol/L Potassium 3.7 (3.5-5.1) mmol/L Chloride 106 (98-107) mmol/L Carbon Dioxide 25.2 (21.0-32.0) mmol/L BUN 14 (7.0-18.0) mg/dL Creatinine 1.7 H (0.6-1.0) mg/dL Est Cr Clr Drug Dosing 38.62 mL/min Estimated GFR (MDRD) 35.5 ml/min Glucose 117 H (74-106) mg/dL Calcium 9.1 (8.5-10.1) mg/dL Total Bilirubin 0.2 (0.2-1.0) mg/dL AST 22 (15-37) IU/L ALT 24 (14-63) IU/L Alkaline Phosphatase 96 (46-116) U/L Total Protein 6.3 L (6.4-8.2) g/dL Albumin 3.3 L (3.4-5.0) g/dL Globulin 3.0 (2.6-4.0) g/dL Albumin/Globulin Ratio 1.1 (0.9-1.6) Meds: Medications Discontinued Medications Generic Name Dose Route Start Last Admin Trade Name Bishnuq PRN Reason Stop Dose Admin Lidocaine HCl Confirm 12/09/19 15:54 Xylocaine-Mpf 1% Administered 12/09/19 15:55 Dose 5 ml .ROUTE .STK-MED ONE Lidocaine/Epinephrine 10 ml 12/09/19 15:47 Xylocaine 1% With Epinephrine 1:100,000 INJECT 12/09/19 15:48 ONETIME ONE Trimethoprim/Sulfamethoxazole 1 tab 12/09/19 16:19 Septra Ds PO 12/09/19 16:20 ONETIME ONE Departure - Departure Time of Disposition: 16:22 Disposition: Home, Self-Care 01 Clinical Impression: Cellulitis and abscess of hand - Discharge Information Instructions: Cellulitis, Adult, [id number] Referrals: Leonardo Velázquez MD [Primary Care Provider] - Forms: ED Department Discharge Additional Instructions: The following information is given to patients seen in the emergency department who are being discharged to home. This information is to outline your options for follow-up care. We provide all patients seen in our emergency department with a follow-up referral. The need for follow-up, as well as the timing and circumstances, are variable depending upon the specifics of your emergency department visit. If you don't have a primary care physician on staff, we will provide you with a referral. We always advise you to contact your personal physician following an emergency department visit to inform them of the circumstance of the visit and for follow-up with them and/or the need for any referrals to a consulting specialist. The emergency department will also refer you to a specialist when appropriate. This referral assures that you have the opportunity for follow-up care with a specialist. All of these measure are taken in an effort to provide you with optimal care, which includes your follow-up. Under all circumstances we always encourage you to contact your private physician who remains a resource for coordinating your care. When calling for follow-up care, please make the office aware that this follow-up is from your recent emergency room visit. If for any reason you are refused follow-up, please contact the [facility] Emergency Department at and asked to speak to the emergency department charge nurse. [facility] [address] [place] [address] [place] [address] Thank you for choosing the [facility] emergency department in [place] for your medical needs today. It was a pleasure caring for you. Today you were seen in the emergency department for abscess and cellulitis of hand. 1. Continue to monitor the site for improvement. If the redness should worsen outside of the marked area, you may need to be admitted for IV antibiotics as we discussed. Bactrim DS twice daily over the next 10 days. If your symptoms should worsen, new symptoms develop or any of the signs and symptoms we discussed should arise please return to the emergency room or call 911 (if needed). 2. You can alternate Tylenol and ibuprofen for pain. Sepsis Event Note (ED) - Focused Exam Vital Signs: Vital Signs Temp Pulse Resp BP Pulse Ox 12/09/19 15:29 96.5 F L 92 20 111/74 97 - My Orders Last 24 Hours: My Active Orders 12/09/19 15:28 Hand Comp Min 3V Lt [CR] Stat - Assessment/Plan Last 24 Hours: My Active Orders 12/09/19 15:28 Hand Comp Min 3V Lt [CR] Stat
[2019-12-09] MEDS ORDERED: Lidocaine 1% with EPINEPHrine 1:100,000 10 ML MDV INJECT ONE (15:47)
[2019-12-09 16:13] LABS: CARBON DIOXIDE,CO2 25.2 mmol/L (21.0-32.0); POTASSIUM,K 3.7 mmol/L (3.5-5.1)
[2019-12-09] MEDS ORDERED: Sulfamethoxazole/Trimethoprim 800-160 MG Tab PO ONE (16:19)
--- NOTE | 2019-12-09 17:18 | CR ---
Left hand: 3 views of the left hand were obtained. Comparison: No previous hand study. Soft tissue swelling is identified. Joint spaces are preserved. No acute fracture, dislocation or other bony abnormality is appreciated. Impression: 1. Soft tissue swelling. 2. No acute bony abnormality is appreciated. Diagnostic code #1 This report was dictated in MDT
[2019-12-09 17:31] VITALS: BP 111/68; PULSE 70
== END 2019-12-09 17:34 | disposition home or self-care (01) ==
LOC: MW.ED 15:06
DX: L02.512 Cutaneous abscess of left hand (principal); L03.012 Cellulitis of left finger; F41.9 Anxiety disorder, unspecified; F32.9 Major depressive disorder, single episode, unspecified; Z79.899 Other long term (current) drug therapy
CPT/HCPCS: 10060; 36415; 73130; 80053; 85025; 99283; A9270; 99282